=== PATIENT | female | born 1950 | race Hispanic/Latino ===

== ENCOUNTER 2017-02-23 06:48 | Day surgery (SDC) | payer BC, MEDICARE, OTHER ==
[2017-02-14 12:06] VITALS: BMI 26.5
[2017-02-23] MEDS ORDERED: Propofol 10 mg/ml Inj (20 ML) ONE (08:03)
[2017-02-23 08:09] VITALS: O2SAT 100
[2017-02-23] MEDS ORDERED: ePHEDrine 50 mg/ml Inj ONE (08:30)
[2017-02-23] MEDS ORDERED: Phenylephrine 10 mg/ml Inj ONE (08:30)
[2017-02-23] MEDS ORDERED: Sodium Chloride 0.9% 1,000 ML IV SCH (09:00)
[2017-02-23 09:05] VITALS: RESP 16
[2017-02-23 09:46] VITALS: BP 148/76; PULSE 67; TEMP 98
== END 2017-02-23 10:04 | disposition home or self-care (01) ==
LOC: ENDO 06:48
PROVIDERS: ATTEND Internal Medicine Gastroenterology
DX: K55.20 Angiodysplasia of colon without hemorrhage (principal); K57.30 Diverticulosis of large intestine without perforation or abscess without bleeding; K64.8 Other hemorrhoids; K29.50 Unspecified chronic gastritis without bleeding; Z86.010 Personal history of colon polyps
CPT/HCPCS: 43239; 45388; 88305; 88312; 88342; J2001; J2370; J2704; J3010; J7040 ×2

== ENCOUNTER 2017-09-21 08:20 | Emergency (ER) | payer BC, MEDICARE, OTHER ==
[2017-09-21 08:26] VITALS: BMI 24.0
[2017-09-21 08:29] VITALS: PULSE 96; TEMP 98.7
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
[2017-09-21 10:04] VITALS: BP 158/97; RESP 18
[2017-09-21 10:19] VITALS: O2SAT 99
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
== END 2017-09-21 10:15 | disposition home or self-care (01) ==
LOC: ED 08:20
DX: S80.11XA Contusion of right lower leg, initial encounter (principal); V03.90XA Pedestrian on foot injured in collision with car, pick-up truck or van, unspecified whether traffic or nontraffic accident, initial encounter; Y92.410 Unspecified street and highway as the place of occurrence of the external cause